=== PATIENT | female | born 1970 | race Caucasian/White ===

== ENCOUNTER → 2018-01-06 | Outpatient (CLI) | payer BC ==
[2018-01-06 11:05] LABS: Basophils # (A) 0.1 k/uL (0-0.2); Basophils % (A) 1 %; Eosinophils # (A) 0.2 k/uL (0-0.7); Eosinophils % (A) 2 %; HCT 41.7 % (34.0-46.0); HGB 14.2 gm/dL (11.4-16.0); Lymphocytes # (A) 0.9 k/uL (1.0-4.8); Lymphocytes % (A) 13 %; MCH 31.8 pg (25.0-35.0); MCV 93.5 fL (80.0-100.0); Monocytes # (A) 0.6 k/uL (0-1.0); Monocytes % (A) 9 %; Neutrophils # (A) 4.9 k/uL (1.3-7.7); Neutrophils % (A) 73 %; Platelet Count 260 k/uL (150-450); RBC 4.46 m/uL (3.80-5.40); RDW 11.9 % (11.5-15.5); WBC 6.8 k/uL (3.8-10.6)
[2018-01-06 11:39] LABS: Anion Gap 10 mmol/L; Blood Urea Nitrogen 18 mg/dL (7-17); Carbon Dioxide 25 mmol/L (22-30); Chloride 101 mmol/L (98-107); Glucose 93 mg/dL (74-99); Potassium 4.6 mmol/L (3.5-5.1); Sodium 136 mmol/L (137-145)
== END ==
LOC: LABPAT 10:36
PROVIDERS: ATTEND Obstetrics & Gynecology
DX: Z01.812 Encounter for preprocedural laboratory examination (principal); D25.9 Leiomyoma of uterus, unspecified
CPT/HCPCS: 36415; 80051; 82565; 82947; 84520; 85025; 87086

== ENCOUNTER 2018-01-13 07:31 | Inpatient (IN) | payer BC ==
[2018-01-01 15:04] VITALS: BMI 22.9
[~2018-01-13 07:31] MED LIST: DEXAMETHASONE SOD PHOSPHATE 10 MG/ML 1 ML VIAL IV ONE; MIDAZOLAM 2 MG/2 ML VIAL IV PRN; ONDANSETRON ODT 4 MG TAB PO ONE; SCOPOLAMINE 1.5MG/72HR PATCH TRANSDERM ONE; ceFAZolin IN SWFI 2 GM/20 ML SYRINGE IVP ONE
[2018-01-13] MEDS: LACTATED RINGERS 1,000 ML IV SCH (08:25)
[2018-01-13] MEDS ORDERED: LIDOCAINE 1% 20 ML VIAL (10MG/ML) FOR IV START INTRADERMA ONE (08:25)
[2018-01-13] MEDS ORDERED: MORPHINE SULFATE 4 MG/ML SYRINGE IVP PRN (08:49)
[2018-01-13] MEDS ORDERED: ONDANSETRON 4 MG/2 ML VIAL IVP PRN (08:49)
[2018-01-13] MEDS ORDERED: NALOXONE 0.4 MG/ML 1 ML VIAL IV PRN (08:49)
[2018-01-13] MEDS: fentaNYL (PF) 50 MCG/ML 2 ML AMP IV PRN ×3 (08:57→11:14)
[2018-01-13] MEDS ORDERED: diphenhydrAMINE 50 MG/ML 1 ML VIAL IVP ONE (09:24)
[2018-01-13] MEDS ORDERED: GLYCOPYRROLATE 0.2 MG/ML 2 ML VIAL ONE (09:35)
[2018-01-13] MEDS ORDERED: MORPHINE SULFATE (PF) 0.3 MG/0.3 ML SYR ONE (09:35)
[2018-01-13] MEDS ORDERED: fentaNYL (PF) 50 MCG/ML 2 ML AMP ONE (09:35)
[2018-01-13] MEDS ORDERED: LIDOCAINE 1% INJ 10MG/ML (20 ML MDV) ONE (09:35)
[2018-01-13] MEDS ORDERED: ROCURONIUM BROMIDE 10 MG/ML 10 ML VIAL IV ONE (09:35)
[2018-01-13] MEDS ORDERED: PROPOFOL 10 MG/ML 20 ML VIAL IV ONE (09:35)
[2018-01-13] MEDS ORDERED: SUCCINYLCHOLINE CHLORIDE 100 MG/5 ML SYR IV ONE (09:35)
[2018-01-13] MEDS ORDERED: NEOSTIGMINE 1 MG/ML 10 ML VIAL ONE (09:35)
[2018-01-13] MEDS ORDERED: LACTATED RINGERS 1,000 ML IV ONE (10:33)
[2018-01-13] MEDS ORDERED: METOCLOPRAMIDE 5 MG/ML 2 ML VIAL IVP PRN (10:43)
[2018-01-13] MEDS ORDERED: ZOLPIDEM 5 MG TAB PO PRN (10:43)
[2018-01-13] MEDS ORDERED: diphenhydrAMINE 50 MG/ML 1 ML VIAL IVP PRN (10:43)
--- NOTE | 2018-01-13 10:43 | P.OP ---
Date of Procedure: 01/13/18 Preoperative Diagnosis: Fibroid uterus, pelvic pain Postoperative Diagnosis: Same, normal-appearing ovaries bilaterally Procedure(s) Performed: Total abdominal hysterectomy Anesthesia: [id number] Surgeon: Mayda Torres Newspaper Editor Managing #1: Felix Cobb Estimated Blood Loss (ml): 50 IV fluids (ml): 900 Urine output (ml): 85 Pathology: none sent (Cervix and uterus) Condition: stable Disposition: PACU Operative Findings: Normal-appearing ovaries bilaterally Description of Procedure: Patient is brought to the operating room and a spinal with Duramorph is placed without difficulties. She is placed in the dorsal supine position. The cervix , vagina, abdomen and perineal bodies are all thoroughly prepped and draped in usual sterile fashion. Hernandes catheter placed to direct drainage. Antibiotics are given. The appropriate timeout is performed to assure proper patient and procedural identification. A low transverse skin incision is made in this is carried down through the thin subcutaneous tissue of approximately 1.5 cm. Fascia is isolated, scored, and extended bilaterally with curved Venegas scissors. Peritoneum is next identified and incised, there is no bowel or bladder involvement. Examination under anesthesia reveals a negative upper abdomen. The O'Jac-O'Leong retractors placed into the abdominal cavity and the bowel is packed safely away from the operative field. The round ligaments are identified, clamped cut and suture ligated. Metzenbaum scissors are used to mobilize the bladder flap and at all times the bladder is Well from the operative field to avoid bladder and/or ureteral injury. Uterine vasculature is skeletonized with Metzenbaum scissors and DeBakey forceps. It is clamped cut and suture ligated. Please note that 0 Vicryl is used for the entire hysterectomy procedure. 2 additional pedicles are taken inferior to the vessels. The cervix is palpated, and Cecily clamps are used across the cervix at the vaginal cervical junction. Hysterectomy scissors are used and the specimen is removed, cervix fully intact. The vaginal cuff is closed using 0 Vicryl in interrupted fashion. The pelvis is then generously irrigated, noted to be clean and dry. Ovaries are left in situ per the patient's wishes as they appear normal to inspection. Peritoneum is allowed to close by secondary intention. Fascia is closed in a running stitch using 0 Vicryl suture for excellent reapproximation. Subcutaneous tissue is clean and dry. 4-0 undyed Monocryl is used in a subcuticular manner for final skin closure. Steri-Strips and Mastisol are applied to the wound. Hernandes is noted to be draining clear urine. All sponge needle and enhancement counts are correct at the end of the procedure. He is brought back to the recovery room in excellent condition with stable vital signs , 98% O2 sat, pulse 52, blood pressure 98/58.
[2018-01-13] MEDS: KETOROLAC 30 MG/ML 1 ML VIAL IVP PRN ×3 (12:22→23:32)
[2018-01-13] MEDS: diphenhydrAMINE 50 MG/ML 1 ML VIAL IVP PRN ×2 (16:48→23:42)
[2018-01-14] MEDS: diphenhydrAMINE 50 MG/ML 1 ML VIAL IVP PRN (05:36)
[2018-01-14] MEDS: KETOROLAC 30 MG/ML 1 ML VIAL IVP PRN (05:37)
[2018-01-14] MEDS ORDERED: NALBUPHINE 10 MG/ML AMPUL IV PRN (05:47)
--- NOTE | 2018-01-14 05:51 | P.PN ---
Progress Note - Text Progress Note Date: 01/14/18 Patient is status post total abdominal hysterectomy postop day 1 with intrathecal Duramorph. This morning, vital signs are stable. The patient endorses mild itching. She does not response to IV Benadryl, and was given it a 5 mg dose of Nubain IV which helped significantly with her itching. Patient denies nausea, vomiting, urinary retention, excessive sedation, respiratory depression, or headache. Patient denies any back pain from needle placement, as well as weakness, or bowel/bladder incontinence. Pain medications per primary service; please call back with any further questions.
[2018-01-14] MEDS: LACTATED RINGERS 1,000 ML IV SCH (07:07)
--- NOTE | 2018-01-14 08:07 | P.DS ---
Providers Date of admission: 01/13/18 07:31 Expected date of discharge: 01/14/18 Attending physician: Mayda Torres Primary care physician: [facility] Course: This is a 47-year-old female who presented with a history of enlarged fibroid uterus and pelvic pain. She was counseled regarding the use of Lupron versus surgery, and elected to proceed with surgical palliation. Please see my dictated history and physical for details. Patient underwent total abdominal hysterectomy without issue yesterday. She did well intraoperatively, ovaries appeared normal and therefore were left in situ per her wishes. She did receive spinal with Duramorph. Please see my dictated operative note for details. This morning the patient is doing well. She is voiding, ambulating, passing flatus without difficulty. Vital signs are stable and she has remained afebrile. There is no CVA tenderness, there are active bowel sounds, incision is clean and dry and well approximated. Extremities are negative. Chest is clear. Patient is being discharged home later today in very good condition. She will follow-up in the office with me in 2 weeks. I have reminded her no intercourse , tampons or douching. She will use [id number] products as needed for pain, I am recommending ibuprofen 200 mg, 3 pills every 6 hours as needed. I' ve asked her to call me with any fevers shakes or chills, foul smelling or bloody vaginal or incisional drainage, with any difficulties with bowel or bladder, with any pain not alleviated by [id number]-[id number] products, or indeed with any concerns. Patient Condition at Discharge: Good Plan - Discharge Summary Discharge Rx Participant: Yes New Discharge Prescriptions: No Action No Known Home Medications [No Known Home Medications] Discharge Medication List No Known Home Medications [No Known Home Medications] 01/01/18 [History] Follow up Appointment(s)/Referral(s): Mayda Torres MD [STAFF PHYSICIAN] - 2 Weeks Discharge Disposition: HOME SELF-CARE
[2018-01-14] MEDS ORDERED: ACETAMINOPHEN TAB 325 MG TAB PO PRN (10:44)
[2018-01-14] MEDS: Acetaminophen-Codeine 300-30mg TAB PO PRN ×2 (11:45→15:58)
[2018-01-14] MEDS: IBUPROFEN 600 MG TAB PO PRN ×2 (13:18→18:59)
[2018-01-14] MEDS ORDERED: BISACODYL 10 MG SUPP RECTAL STA (14:14)
[2018-01-14] MEDS ORDERED: diphenhydrAMINE 25 MG CAP PO PRN (20:38)
[2018-01-14] MEDS ORDERED: PROMETHAZINE INJ 25 MG/ML 1 ML VIAL IM STA (20:41)
[2018-01-15] MEDS: IBUPROFEN 600 MG TAB PO PRN (03:01)
[2018-01-15 06:39] LABS: Basophils % (A) 0 %; Eosinophils # (A) 0.1 k/uL (0-0.7); Eosinophils % (A) 2 %; HCT 37.4 % (34.0-46.0); HGB 12.8 gm/dL (11.4-16.0); Lymphocytes # (A) 0.9 k/uL (1.0-4.8); Lymphocytes % (A) 12 %; MCH 31.7 pg (25.0-35.0); MCHC 34.1 g/dL (31.0-37.0); MCV 92.9 fL (80.0-100.0); Mean Platelet Volume 6.8; Monocytes # (A) 0.5 k/uL (0-1.0); Monocytes % (A) 7 %; Neutrophils # (A) 5.6 k/uL (1.3-7.7); Neutrophils % (A) 77 %; Platelet Count 265 k/uL (150-450); RBC 4.03 m/uL (3.80-5.40); RDW 11.6 % (11.5-15.5); WBC 7.2 k/uL (3.8-10.6)
--- NOTE | 2018-01-15 07:51 | P.DS ---
Providers Date of admission: 01/13/18 07:31 Expected date of discharge: 01/15/18 Attending physician: Mayda Torres Primary care physician: [facility] Course: Patient complained of an ALLERGIC reaction yesterday to the codeine in Tylenol 3. She complained of itchy throat, red and inflamed puffy face. The codeine was discontinued, Benadryl was given. Patient experienced an episode of what I believe was a panic attack, supported by nursing staff with quick resolution. I have offered her medication for anxiety which she declined last night, and this morning is also declining. Discharge was canceled until this morning. Patient was given 1 IM injection of 50 mg of Phenergan with good relief. This morning she is doing well. She is passing flatus, voiding, ambulating without difficulty. Her face is no longer red or inflamed. She has no complaint of shortness of breath. Pain is alleviated well with Toradol, therefore prescription for oral toradol 10 mg to be used every 6 hours as needed is given. Discharge instructions are once again reviewed as detailed yesterday. All questions are answered. Patient is in good condition for discharge home. Patient Condition at Discharge: Good Plan - Discharge Summary Discharge Rx Participant: Yes New Discharge Prescriptions: No Action No Known Home Medications [No Known Home Medications] Discharge Medication List No Known Home Medications [No Known Home Medications] 01/01/18 [History] Follow up Appointment(s)/Referral(s): Mayda Torres MD [STAFF PHYSICIAN] - 01/29/18 2:15 pm Activity/Diet/Wound Care/Special Instructions: regular diet as tolerated. drink fluids. Activity as tolerated, no heavy lifting about a milk jug, nothing strenuous, no vacuuming. Nothing vaginally until ok with Dr. call office for any fever, chills, increased pain not covered with over the counter medications as discussed with Dr Torres, increased redness or discolored drainage from incision site, heavy vaginal bleeding, problems urinating or having bowel movements or any concerns. Discharge Disposition: HOME SELF-CARE
[2018-01-15 08:43] VITALS: BP 97/59; RESP 16; TEMP 98.3
[2018-01-15 08:50] VITALS: PULSE 76
== END 2018-01-15 09:30 | disposition home or self-care (01) | DRG 743 ==
LOC: 2ORMAIN 07:31 → 6PED 10:52
PROVIDERS: ADMIT Obstetrics & Gynecology; ATTEND Obstetrics & Gynecology
PROC: 0UTC0ZZ Resection of Cervix, Open Approach (ICD-10-PCS; 2018-01-13)
PROC: 0UT90ZZ Resection of Uterus, Open Approach (ICD-10-PCS; principal; 2018-01-13 09:20)
DX: D25.9 Leiomyoma of uterus, unspecified (principal); F17.210 Nicotine dependence, cigarettes, uncomplicated; Z71.6 Tobacco abuse counseling; F41.0 Panic disorder [episodic paroxysmal anxiety]; L08.89 Other specified local infections of the skin and subcutaneous tissue; L29.8 Other pruritus; T40.2X5A Adverse effect of other opioids, initial encounter
CPT/HCPCS: 81025; 85025; 86850; 86900; 86901; 88307

== ENCOUNTER → 2018-04-28 | Outpatient (CLI) | payer BC ==
--- NOTE | 2018-04-28 13:26 | XR ---
EXAMINATION TYPE: XR orbit complete bilateral DATE OF EXAM: 04/28/2018 COMPARISON: NONE HISTORY: Fall injury 2 weeks ago with pain and contusion over right orbit. TECHNIQUE: Complete orbital series with 2 frontal projections, lateral, and oblique projection obtain ed FINDINGS: Orbital floors and douglas are grossly intact. No acute displaced fracture is evident. Adjace nt maxillary sinus shows no suspicious opacification or air-fluid level. Slightly suboptimal study as the second oblique projection is not acquired. Overlying soft tissue is unremarkable. IMPRESSION: No acute displaced orbital fracture is evident.
== END | disposition home or self-care (01) ==
LOC: LABWHC1 12:19
PROVIDERS: ATTEND Family Medicine
DX: S05.11XA Contusion of eyeball and orbital tissues, right eye, initial encounter (principal); N83.209 Unspecified ovarian cyst, unspecified side
CPT/HCPCS: 36415; 70200; 82378; 86304